=== PATIENT | male | born 1945 | race Caucasian/White ===

== ENCOUNTER → 2017-09-09 | Outpatient (CLI) | payer OTHER, BC ==
[~2017-09-09] MED LIST: ASPIR 8181 MG PO; CARAFATE 1 GM TA1 GM PO; CENTRUM SILVER1 EAC2 PO; DULERA 200 MCG/13 GM INH; GARLIC1 EACH PO; GLUCOSAMINE CH1 EAC2 PO; HYZAAR 100-251 EACH PO; METHYLPHENIDATE20 M5 PO; OMEPRAZOLE40 MG PO; PRINIVIL20 MG PO; PROAIR HFA8.5 GM INH; SIMVASTATIN40 MG PO; SINGULAIR 10 MG10 M1 PO; VENTOLIN HFA 1818 GM INH; VITAMIN D3400 UNIT PO
== END ==
LOC: RAD 11:07
DX: J18.9 Pneumonia, unspecified organism (principal)

== ENCOUNTER → 2017-09-18 | Outpatient (CLI) | payer OTHER, BC ==
[~2017-09-18] VITALS: Ht 188 cm; Wt 124.7 kg
--- NOTE | ~2017-09-18 | S ---
[facility] [place] [address] SURGICAL PATH RPT PROCEDURE Name: BHUPINDER ETIENNE Room #: REG [facility] MJefferson.#: [id number] Admission: 09/18/17 Date of : 47 Discharge: Report #: [id number] Path Case #: [id number] PATHOLOGY REPORT COLLECTION DATE: 09/18/2017 RECEIVED DATE: 09/18/2017 SUBMITTING PHYS: Dr. Carlito Clifton OTHER PHYS: Dr. Bo Cox SPECIMEN(S) RECEIVED: A.Bx GE junction B.Bx distal esophagus * * * * * * * * * * * * FINAL DIAGNOSIS: A. Gastroesophageal mucosa, GE junction rule out Martínez's, endoscopic biopsy: - Fragments of gastric cardia-type mucosa with mild chronic inflammation. - Squamous mucosa with mild active esophagitis and changes compatible with reflux. - Negative for intestinal metaplasia or dysplasia. B. Gastroesophageal mucosa, distal esophagus, rule out Martínez's, endoscopic biopsy: - Fragments of gastric cardia-type mucosa with mild chronic inflammation. - Squamous mucosa with mild active esophagitis and changes compatible with reflux. - Negative for intestinal metaplasia or dysplasia. (IUV:mml; 09/19/2017) PATHOLOGIST: Muna Weber M.D. REPORT ELECTRONICALLY SIGNED BY: Muna Weber M.D. DATE/TIME: 09/19/2017 15:15 * * * * * * * * * * * * GROSS PATHOLOGY: A. Received in formalin labeled "Bhupinder Etienne, biopsy GE junction rule out Martínez's" is a 1.5 x 0.5 x 0.2 cm aggregate of pink-sanders soft tissue. The specimen is submitted entirely in cassette A1. B. Received in formalin labeled "Bhupinder Etienne, biopsy distal esophagus rule out Martínez's" is a 0.5 x 0.5 x 0.2 cm aggregate of pink-sanders soft tissue. The specimen is submitted entirely in cassette B1. ([facility] [place] 09/18/2017) [facility] [place] [address] SURGICAL PATH RPT PROCEDURE Name: BHUPINDER ETIENNE Room #: REG [facility].#: [id number] Admission: 09/18/17 Date of : 47 Discharge: Report #: [id number] Path Case #: [id number] CLINICAL HISTORY: Martínez's esophagus with low-grade dysplasia, small hiatal hernia, gastritis, history of Martínez's. INITIAL CPT CODE(S): A; 47934 B; 73757 Professional services performed by [facility] at [address] , [place] [address] Technical services performed by [facility] at [address] [place] [address], [facility] [address] [address]. [facility] [address] [address] PHONE: [phone] DIRECTOR: Isaias Espinoza M.D. * * * END OF REPORT * * *
--- NOTE | ~2017-09-18 | P ---
[facility] [address] [place] [address] PROCEDURE REPORT Name: JENNA DAILEY Kassidy Room #: REG [facility]#: [id number] Admission: 09/18/17 Attend Phys: Carlito Clifton MD Discharge: Date of : 47 Report #: [id number] THIS REPORT FOR: //name// CC: Bo Clifton BRIEF HISTORY: The patient is a 71-year-old male with history of Martínez esophagus with low-grade dysplasia and previous radiofrequency ablation for followup. He has had a short segment, with last treatment more than a year ago. PREOPERATIVE DIAGNOSES: History of Martínez's with low-grade dysplasia. POSTOPERATIVE DIAGNOSES: 1. History of Martínez's with low-grade dysplasia. 2. Small hiatus hernia. 3. Diffuse erythematous gastritis. MEDICATIONS: Deep sedation with propofol per Anesthesia. SPECIMEN: 1. Biopsies of the GE junction, gastric side. 2. Biopsy of distal esophagus. ESTIMATED BLOOD LOSS: 3 mL. PROCEDURE: EGD with biopsy. FINDINGS: Prior to propofol sedation, procedure of upper endoscopy discussed with the patient as well as potential risks and its complications. He indicates he understands and desires to proceed. DESCRIPTION OF PROCEDURE: With the patient in left lateral decubitus position, the Fuji video endoscope was inserted in the cervical esophagus under direct vision without difficulty. Examination of this organ through its entire length revealed normal esophageal mucosa down the squamocolumnar junction. Squamocolumnar junction was slightly irregular. Obvious Martínez was not seen. In addition, there was a small hiatus hernia that was no more than 2 cm. Further examination revealed the mucosa and the distal esophagus along the GE junction to be completely flat without ulcers or erosions, nodules or raised lesions. Biopsies were obtained of the GE junction on the gastric side, and multiple biopsies were obtained in the very distal esophagus. Scope was advanced through the small hiatus hernia into the stomach. Stomach was examined on end view as well as retroflexed views. There was a pattern of diffuse erythematous gastritis. No ulcers or erosions were seen. Upon retroflexion, no mass lesions were seen. The pylorus, duodenal bulb and postbulbar sweep were inspected and noted to be unremarkable. At that point, the scope was shortened [address] [address] PROCEDURE REPORT Name: JENNA DAILEY Room #: REG [facility].#: [id number] Admission: 09/18/17 Attend Phys: Carlito Clifton MD Discharge: Date of : 47 Report #: [id number] and careful circumferential views confirmed the above findings. The patient tolerated the procedure well. CONDITION OF THE PATIENT UPON DISCHARGE: Following procedure, the patient was drowsy and arousable. He will be discharged home when fully ambulatory. INSTRUCTIONS TO THE PATIENT AND FAMILY AT THE TIME OF DISCHARGE: Obvious Martínez is not seen today. We will follow up on biopsies. Certainly, if there is evidence of dysplasia, repeat treatment will be indicated. We will discuss further with the patient after biopsies have been reviewed. In the meantime, he can continue PPI in the lowest dose to control symptoms. He is currently taking pantoprazole 40 twice daily, it would be reasonable for him to reduce to 1 daily, if tolerated. <ELECTRONICALLY SIGNED> By: Carlito Clifton MD 09/19/17 1201 [id number] [id number] Carlito Clifton MD /nt
== END | disposition home or self-care (01) ==
LOC: GI 08:25
DX: K29.70 Gastritis, unspecified, without bleeding (principal); K44.9 Diaphragmatic hernia without obstruction or gangrene; K29.50 Unspecified chronic gastritis without bleeding; K20.8 Other esophagitis; I10 Essential (primary) hypertension; J45.909 Unspecified asthma, uncomplicated; E78.00 Pure hypercholesterolemia, unspecified; K21.9 Gastro-esophageal reflux disease without esophagitis; F17.210 Nicotine dependence, cigarettes, uncomplicated; Z96.642 Presence of left artificial hip joint; Z98.890 Other specified postprocedural states; Z79.82 Long term (current) use of aspirin; Z79.899 Other long term (current) drug therapy
CPT/HCPCS: 62110; 62900

== ENCOUNTER → 2019-05-10 | Outpatient (CLI) | payer OTHER | LOC: CAT 11:10 | DX: Z13.6 Encounter for screening for cardiovascular disorders (principal); I25.10 Atherosclerotic heart disease of native coronary artery without angina pectoris; E78.00 Pure hypercholesterolemia, unspecified ==

== ENCOUNTER → 2020-02-21 | Outpatient (CLI) | payer OTHER, BC | LOC: SJCVCIMAG 07:28 | PROVIDERS: ATTEND Internal Medicine Cardiovascular Disease | DX: I65.23 Occlusion and stenosis of bilateral carotid arteries (principal); I71.4 Abdominal aortic aneurysm, without rupture; E78.5 Hyperlipidemia, unspecified; I10 Essential (primary) hypertension; E66.9 Obesity, unspecified; Z87.891 Personal history of nicotine dependence ==

== ENCOUNTER → 2020-11-14 | Outpatient (CLI) | payer OTHER, BC ==
[~2020-11-14] VITALS: Ht 185.4 cm; Wt 133.8 kg
[~2020-11-14] MED LIST changes: +ALBUTEROL2.5 MG/3 M INH; +ASA81BEC PO; +FLONASE 0.05%50 MCG NARES; +VALSARTAN-HCTZ1 EAC1 PO; +VENTOLIN HFA INH8 GM INH
--- NOTE | 2020-11-17 17:07 | PATH ---
[facility] [address] [place] [address] PATHOLOGY RPT PROCEDURE Name: JENNA ETIENNE HEIDI Room #: REG [facility] MJefferson.#: [id number] Admission: 11/14/20 Date of : 47 Discharge: Report #: [id number] Path Case #: [id number] [facility] Accession Number: [id number] . 01 Material submitted: . esophagus - SHORT SEGMENT BARRETTS ESOPHAGUS BIOPSY . 01 Clinical history: . YVONNE'S . 02 Diagnosis: Gastric cardia-type mucosa, short segment Martínez's esophagus, endoscopic biopsy: - Moderate chronic inflammation. - Negative for intestinal metaplasia or dysplasia. (IUV:bhavya; 11/17/2020) QMS 11/17/2020 1159 Local . 02 Electronically signed: . Muna Weber MD, Pathologist NPI- [id number] . 01 Gross description: . The specimen is received in formalin, labeled "Jenna Etienne", "short segment Martínez's esophagus (biopsy)". Received are 2 segments of pale white-sanders soft tissue measuring 0.1 and 0.2 cm. The specimen is entirely submitted in cassette A1.(SNA; 11/16/2020) JUSTIN/ERIKA 11/16/2020 0821 Local . 02 Pathologist provided ICD-10: K20.90 . 02 CPT . 782453 Specimen Comment: A courtesy copy of this report has been sent to [phone] Specimen Comment: [phone] Specimen Comment: Report sent to / DR ROBERTS Performed at: [address], [place], [place] [id number] MD Caesar Martinez MD Phone: [phone] Performed at: [address] [id number] MD Muna Weber MD Phone: [phone]
== END | disposition home or self-care (01) ==
LOC: GI 08:24
PROVIDERS: ATTEND Internal Medicine Gastroenterology
DX: R12 Heartburn (principal); K20.90 Esophagitis, unspecified without bleeding; K22.70 Barrett's esophagus without dysplasia; K44.9 Diaphragmatic hernia without obstruction or gangrene; I10 Essential (primary) hypertension; E78.00 Pure hypercholesterolemia, unspecified; J45.909 Unspecified asthma, uncomplicated; M19.90 Unspecified osteoarthritis, unspecified site; Z98.890 Other specified postprocedural states; Z79.899 Other long term (current) drug therapy; Z86.010 Personal history of colon polyps; Z87.891 Personal history of nicotine dependence; Z20.822 Contact with and (suspected) exposure to COVID-19; Z96.642 Presence of left artificial hip joint
CPT/HCPCS: 62110; 62900

== ENCOUNTER → 2020-11-28 | Outpatient (CLI) | payer OTHER, BC | LOC: SJCVC 10:07 | PROVIDERS: ATTEND Internal Medicine Cardiovascular Disease | DX: R93.1 Abnormal findings on diagnostic imaging of heart and coronary circulation (principal); I10 Essential (primary) hypertension; E78.5 Hyperlipidemia, unspecified; I71.4 Abdominal aortic aneurysm, without rupture; I65.23 Occlusion and stenosis of bilateral carotid arteries; E78.00 Pure hypercholesterolemia, unspecified; Z87.891 Personal history of nicotine dependence; Z79.82 Long term (current) use of aspirin; Z79.899 Other long term (current) drug therapy; Z82.49 Family history of ischemic heart disease and other diseases of the circulatory system ==

== ENCOUNTER → 2021-07-09 | Outpatient (CLI) | payer OTHER, BC ==
[~2021-07-09] MED LIST changes: +MULTI VITAMIN1 EACH PO; +VITAMIN B12-FO1 EAC1 PO; +VITAMIN C1000 MG PO; +VITAMIN D325 MC2 PO; +ZINC50 M1 PO
[2021-07-09 11:05] VITALS: BP 129/73
[2021-07-09 11:41] VITALS: BP 129/73
[2021-07-09 12:00] VITALS: BP 138/77
--- NOTE | 2021-07-09 12:10 | NUR ---
HERE FOR 1ST OF 5 VENOFER INFUSIONS. IN GENERAL REPORTS [facility], FEELING WELL OTHER THAN FATIGUE AND SOME DYSPNEA ON EXERTION. NOTES NO SOURCE OF BLOOD LOSS BUT STATES THEY ARE WORKING HIM UP FOR THIS AND IS AWAITING A COLONOSCOPY AND EGD TO BE SCHEDULED. TEACHING DONE. IRON INFUSION COMPLETED WITHOUT INCIDENT, NO S/S REACTION, VSS POST. NEXT 4 APPTS MADE. PT DISMISSED IN STABLE CONDITION. SCHEDULED TO RETURN AGAIN ON FRI.
== END ==
LOC: OPONC 10:39
PROVIDERS: ATTEND Family Medicine
DX: D50.9 Iron deficiency anemia, unspecified (principal)
CPT/HCPCS: 95000

== ENCOUNTER → 2021-07-12 | Outpatient (CLI) | payer OTHER, BC ==
[2021-07-12 10:50] VITALS: BP 117/64
[2021-07-12 11:35] VITALS: BP 111/56
--- NOTE | 2021-07-12 12:17 | NUR ---
PT HERE FOR DOSE 2/5 OF VENOFER. STATES HE TOLERATED THE FIRST DOSE WELL WITH NO ADVERSE REACTIONS. PT WAS SCHEDULED FOR YESTERDAY, BUT RE-SCHEDULED HIS APPT TO TODAY DUE TO A BOUGHT OF GI UPSET. STATES HE HAD A LOW GRADE FEVER WELL. TOOK A COVID TEST, WHICH CAME BACK NEGATIVE. WOKE UP THIS MORNING AFEBRILE AND FEELING MUCH BETTER. THINKS HE MAY HAVE ATE SOMETHING THAT DID NOT AGREE WITH HIM. VSS. IV STARTED IN RIGHT AC. PT TOLERATED VENOFER WITH NO COMPLICATIONS. POST-INFUSION VITALS STABLE. PT LEFT UNIT VIA WHEELCHAIR IN STABLE CONDITION. SCHEDULED TO RETURN NEXT FRIDAY.
== END ==
LOC: OPONC 10:52
PROVIDERS: ATTEND Family Medicine
DX: D50.9 Iron deficiency anemia, unspecified (principal)
CPT/HCPCS: 95000

== ENCOUNTER → 2021-07-18 | Outpatient (CLI) | payer OTHER, BC ==
[2021-07-18 10:36] VITALS: BP 102/63
--- NOTE | 2021-07-18 11:15 | NUR ---
HERE FOR #3 OF 5 VENOFER INFUSIONS. STATES FELT WELL POST LAST INFUSION, NO UNTOWARD SIDE EFFECTS NOTED. TOLERATED TODAY'S INFUSION WITHOUT INCIDENT, NO S/S OF REACTION. VSS POST. DISMISSED IN STABLE CONDITION. SCHEDULED TO RETURN AGAIN ON FRIDAY. PLANS TO CALL DR. ROBERTS TODAY TO SEE WHEN HIS ENDOSCOPIES WILL BE SCHEDULED.
== END ==
LOC: OPONC 09:22
PROVIDERS: ATTEND Family Medicine
DX: D50.9 Iron deficiency anemia, unspecified (principal)
CPT/HCPCS: 95000

== ENCOUNTER → 2021-07-20 | Outpatient (CLI) | payer OTHER, BC ==
[2021-07-20 10:30] VITALS: BP 126/77
[2021-07-20 11:10] VITALS: BP 129/74
--- NOTE | 2021-07-20 11:54 | NUR ---
PT HERE FOR DOSE 4/5 OF IV VENOFER. NO COMPLAINTS TODAY. REPORTS AN INCREASE IN ENERGY OVER THE PAST WEEK. VSS. IV STARTED IN RIGHT AC. PT TOLERATED INFUSION WITH NO COMPLICATIONS. RAN OVER 30 MIN. POST-INFUSION VITALS STABLE. IV REMOVED. PT LEFT UNIT IN STABLE CONDITION. SCHEDULED TO RETURN ON SUNDAY 07/23 FOR LAST DOSE.
== END ==
LOC: OPONC 10:50
PROVIDERS: ATTEND Family Medicine
DX: D50.9 Iron deficiency anemia, unspecified (principal)
CPT/HCPCS: 95000

== ENCOUNTER → 2021-07-23 | Outpatient (CLI) | payer OTHER, BC ==
[2021-07-23 10:40] VITALS: BP 106/66
[2021-07-23 11:25] VITALS: BP 148/79
--- NOTE | 2021-07-23 11:46 | NUR ---
HERE FOR LAST DOSE, , IV VENOFER. HAS TOLERATED ALL WELL. STATES BEGINNING TO FEEL BETTER AND HAS BEEN ABLE TO WALK ALL THE WAY IN TO THE CLINIC INSTEAD OF NEEDING TO TAKE A W/C RIDE. WAS ABLE TO GET IN TOUCH WITH DR. ROBERTS'S OFFICE LAST WEEK TO LET THEM KNOW HE IS STILL AWAITING A CALL FROM DR. GUZMAN'S OFFICE TO SCHEDULE A SCOPE. STILL HAS NOT HEARD FROM THAT OFFICE. ENCOURAGED PT TO CALL HIMSELF TO ASK IF REFERRAL HAS BEEN SENT AND SEE IF HE CAN SCHEDULE HIS SCOPE. PT TOLERATED TODAY'S INFUSION WITHOUT INCIDENT, NO S/S REACTION, VSS. DISMISSED IN STABLE CONDTION.
== END ==
LOC: OPONC 10:53
PROVIDERS: ATTEND Family Medicine
DX: D50.9 Iron deficiency anemia, unspecified (principal)
CPT/HCPCS: 95000